=== PATIENT | female | born 1975 | race Hispanic/Latino ===

== ENCOUNTER 2019-04-24 11:02 | Observation (INO) | payer MEDICARE ==
--- NOTE | 2019-04-24 11:59 | RAD ---
XR Chest 1 View Portable History: Dyspnea Comparison: None. Findings: Heart size mildly enlarged. Mild pulmonary venous congestion. No pneumothorax. No significa nt effusion. Impression: Cardiomegaly and mild pulmonary venous congestion.
[2019-04-24 12:00] LABS: #Lymphocytes 0.7 thou/uL (1.20-3.40); #Monocytes 0.1 thou/uL (0.11-0.59); #Neutrophils 7.4 thou/uL (1.40-6.50); %Basophils 0.2 % (0.0-1.0); %Lymphocytes 8.9 % (21.0-51.0); %Monocytes 1.2 % (0.0-10.0); %Neutrophils 89.7 % (42.0-75.0); Hemoglobin 7.2 g/dL (12.0-16.0); Mean Corpuscular HGB CONC 31.3 g/dL (32.0-36.0); Mean Corpuscular Hemoglobin 26.1 pg (27.0-31.0); Mean Corpuscular Volume 83.5 fL (78.0-98.0); Mean Platelet Volume 5.8 fL (7.4-10.4); Platelet Count 406 thou/uL (130-400); RBC Distribution Width 17.1 % (11.5-14.5); Red Blood Cell (RBC) Count 2.76 mill/uL (4.20-5.40); White Blood Cell (WBC) Count 8.2 thou/uL (4.8-10.8)
[2019-04-24 12:16] LABS: ALT (SGPT) 25 U/L (8-55); AST (SGOT) 26 U/L (5-34); Albumin 4.2 g/dL (3.5-5.0); Alkaline Phosphatase 41 U/L (40-150); Anion Gap 12 mmol/L (10-20); BUN (Urea Nitrogen) 15 mg/dL (7.0-18.7); Bilirubin, Total 0.2 mg/dL (0.2-1.2); Calc. Creatinine Clearance 0 mL/min (70-130); Carbon Dioxide 21 mmol/L (22-29); Chloride 110 mmol/L (98-107); Estimated GFR-MDRD 89; Globulin 2.8 g/dL (2.4-3.5); Glucose 183 mg/dL (70-105); Potassium 3.4 mmol/L (3.5-5.1); Sodium 140 mmol/L (136-145)
[2019-04-24] MEDS ORDERED: Acetaminophen 325 MG TAB PO PRN (14:15)
[2019-04-24] MEDS ORDERED: Ondansetron ODT 4 MG TAB PO PRN (14:15)
[2019-04-24 14:17] VITALS: BMI 37.5
[2019-04-24] MEDS ORDERED: cloNIDine 0.1 MG TAB PO PRN (14:19)
[2019-04-24] MEDS ORDERED: Ibuprofen 800 MG TAB PO PRN (14:19)
[2019-04-24] MEDS ORDERED: Furosemide 20 MG/2 ML VIAL IVP SCH (14:45)
[2019-04-24] MEDS ORDERED: Sodium Chloride 0.9% 10 ML ONE (17:48)
--- NOTE | 2019-04-24 21:58 | HP ---
CHIEF COMPLAINT: Shortness of breath. HISTORY OF PRESENT ILLNESS: The patient is a 43-year-old female with a past medical history of iron deficiency, heavy periods, rheumatoid arthritis, hypertension, and fibromyalgia who presented to the ER this morning with progressive shortness of breath and fatigue that began last evening. I saw the patient for the 1st time in clinic yesterday and she was asymptomatic at that time. She states she started having difficulty moving about her house without needing to stop to catch her breath. This continued this morning and she decided to come to the ER for further evaluation. She did come to my office this morning to give blood, so that we could check her blood count and when she left the office, went to the ER. Her hemoglobin was found to be 7.2. The patient has a history of transfusions in the past and also iron infusions due to her iron deficiency. She has a history of heavy periods and her last period lasted for approximately 16 days and is just now completing. PAST MEDICAL HISTORY: 1. Rheumatoid arthritis. 2. Fibromyalgia. 3. Hypertension. 4. Iron deficiency anemia. PAST SURGICAL HISTORY: 1. C-sections x4. 2. Appendectomy. FAMILY HISTORY: Mom has lupus, heart disease, hypertension, and diabetes. Dad has arthritis. SOCIAL HISTORY: Patient denies tobacco, alcohol, and other drug use. ALLERGIES: NO KNOWN DRUG ALLERGIES. MEDICATIONS: 1. Losartan/HCTZ 100/25 mg one p.o. daily. 2. Methotrexate 2.5 mg, take 6 tabs p.o. q. week on Mondays. 3. Folic acid 1 mg p.o. daily. 4. Ibuprofen 800 mg p.o. t.i.d. p.r.n. pain. 5. Duloxetine 60 mg p.o. daily. 6. Xeljanz, dose unknown. REVIEW OF SYSTEMS: GENERAL: Negative for fever, chills, and night sweats. EYES: Negative for vision changes and eye pain. HEENT: Negative for sore throat, rhinorrhea, nasal congestion. CARDIOVASCULAR: Negative for chest pain, palpitations and orthopnea. RESPIRATORY: Negative for coughing and wheezing, but positive for shortness of breath on exertion. GI: Negative for abdominal pain, nausea, vomiting and diarrhea. : Negative for dysuria and polyuria. MUSCULOSKELETAL: Positive for chronic joint pain and stiffness. NEUROLOGIC: Negative for syncope and seizures. PSYCHIATRIC: Negative for anxiety and depression. PHYSICAL EXAMINATION: VITAL SIGNS: Temp 98.5, pulse 99, respiration rate 19, O2 saturation 100% on room air, blood pressure 187/97. GENERAL: The patient is awake, alert, oriented, in no acute distress. HEENT: Eyes, pupils are equal, round, reactive to light and accommodation. Extraocular muscles intact. Oropharynx and nasopharynx are without erythema or exudate. Mucous membranes are pale. CARDIOVASCULAR: Regular rate and rhythm without murmurs, gallops, or rubs. LUNGS: Clear to auscultation bilaterally without wheezing or rhonchi. ABDOMEN: Soft, nontender, nondistended. Bowel sounds present. EXTREMITIES: No clubbing, cyanosis, or edema. SKIN: The patient's cap refill is right at 2 seconds. The nail beds are pale. MUSCULOSKELETAL: The patient has full range of motion of all extremities and muscle strength is 5/5. NEUROLOGIC: Cranial nerves 2-12 are grossly intact, deep tendon reflexes 2/4. PSYCHIATRIC: The patient displays appropriate mood and affect. LABORATORY DATA: CBC: WBCs 8.2, hemoglobin 7.2, hematocrit 23.1, platelet count 406, MCV 83.5. CMP: Sodium 140, potassium 3.4, chloride 110, bicarb 21, BUN 15, creatinine 0.71, glucose 183, calcium 9.0, total bilirubin 0.2, AST 26, ALT 25, alkaline phosphatase 41, total protein 7.0, albumin 4.2. Troponin less than 0.01. BNP 86.2. ASSESSMENT AND PLAN: 1. Acute symptomatic iron deficiency anemia secondary to menorrhagia: The patient will be transfused 2 units of packed red blood cells and will receive Lasix after her transfusion. We will repeat H and H after her transfusion. The patient is already being set up for outpatient [employer] evaluation as her vaginal bleeding is the most likely source of the anemia. She received the information for this referral from our office this morning. 2. Hypertension: Patient's blood pressure was quite elevated on arrival. I will restart her losartan/HCTZ and provide clonidine as needed. 3. Rheumatoid arthritis: Continue ibuprofen. The patient is on Xeljanz and methotrexate. Her methotrexate dose is not due until Saturday and her Xeljanz will be brought up by her and we can give her home dose once we find out what that it is. 4. Fibromyalgia: Pain control as mentioned above. 5. Depression: Continue duloxetine. Job ID: [id number] MTDD
[2019-04-25 00:26] LABS: Hemoglobin 8.4 g/dL (12.0-16.0)
[2019-04-25 05:24] LABS: #Basophils 0.1 thou/uL (0.0-0.2); #Eosinphils 0.1 thou/uL (0.0-0.7); #Lymphocytes 1.9 thou/uL (1.20-3.40); #Monocytes 0.4 thou/uL (0.11-0.59); #Neutrophils 5.9 thou/uL (1.40-6.50); %Eosinophils 0.7 % (0.0-10.0); %Monocytes 5.2 % (0.0-10.0); Hemoglobin 8.2 g/dL (12.0-16.0); Mean Corpuscular Hemoglobin 26.7 pg (27.0-31.0); Mean Corpuscular Volume 83.7 fL (78.0-98.0); Platelet Count 330 thou/uL (130-400); RBC Distribution Width 16.1 % (11.5-14.5); Red Blood Cell (RBC) Count 3.05 mill/uL (4.20-5.40); White Blood Cell (WBC) Count 8.4 thou/uL (4.8-10.8)
[2019-04-25 05:40] LABS: Anion Gap 11 mmol/L (10-20); BUN (Urea Nitrogen) 14 mg/dL (7.0-18.7); Calc. Creatinine Clearance 188 mL/min (70-130); Carbon Dioxide 25 mmol/L (22-29); Chloride 108 mmol/L (98-107); Estimated GFR-MDRD Greater than 90; Glucose 93 mg/dL (70-105); Sodium 141 mmol/L (136-145)
[2019-04-25 05:44] LABS: Potassium 2.9 mmol/L (3.5-5.1)
[2019-04-25] MEDS ORDERED: Potassium Chloride 20 MEQ TAB PO SCH (06:15)
[2019-04-25] MEDS ORDERED: Folic Acid 1 MG TAB PO SCH (09:00)
[2019-04-25] MEDS ORDERED: DULoxetine 30 MG CAP PO SCH (09:00)
[2019-04-25] MEDS ORDERED: Losartan 25 MG TAB PO SCH (09:00)
[2019-04-25] MEDS ORDERED: Hydrochlorothiazide 25 MG TAB PO SCH (09:00)
[2019-04-25 09:22] VITALS: TEMP 97.9
[2019-04-25 09:31] VITALS: BP 158/80
--- NOTE | 2019-04-26 05:07 | DIS ---
DATE OF ADMISSION: 04/24/2019 DATE OF DISCHARGE: 04/25/2019 DISCHARGE DIAGNOSES: 1. Acute on chronic symptomatic iron deficiency anemia. 2. Menorrhagia. 3. Hypertension. 4. Rheumatoid arthritis. 5. Fibromyalgia. DISCHARGE MEDICATIONS: 1. Vitamin D3 5000 units p.o. daily. 2. Cymbalta 60 mg p.o. daily. 3. Folic acid 20 mg p.o. daily. 4. Ibuprofen 800 mg p.o. t.i.d. 5. Losartan/HCTZ 100/12.5 mg p.o. daily. 6. Methotrexate 2.5 mg, take six tabs p.o. every week. 7. Prednisone 10 mg p.o. b.i.d. p.r.n. severe joint swelling. 8. Xeljanz XR 11 mg p.o. daily. 9. Zinc 50 mg p.o. daily. 10. Potassium chloride 10 mEq one p.o. q.a.m. x5 days. HOSPITAL COURSE: The patient is a 43-year-old female with a past medical history of iron deficiency anemia, rheumatoid arthritis, hypertension, and fibromyalgia, who presented to the ER with worsening shortness of breath and dyspnea on exertion. The patient's hemoglobin in my office that was drawn yesterday came back 6.8 and in the ER at 7.2. The patient was placed in observation overnight, received 2 units of packed red blood cells. This morning, the patient's hemoglobin is up to 8.2. The patient is no longer symptomatic, feels better, and wants to go home. This morning's labs also indicated the patient was hypokalemic and she also received 40 mEq of potassium. The patient will discharge home on current medications. She has already received the information from my office regarding [employer] referral to evaluate for possible hysterectomy due to her heavy periods, which is likely source of her anemia. DISPOSITION: 1. Discharged home in stable condition. 2. Diet, regular. 3. Activity, ad angle. 4. Followup with myself in the office in 3 days. Job ID: [id number]
[2019-04-26] MEDS ORDERED: Potassium Chloride 10 MEQ TAB PO SCH (08:00)
== END 2019-04-25 11:15 | disposition home or self-care (01) ==
LOC: NAV ERS 11:02 → NAV ACUTE 13:55
PROVIDERS: ADMIT Family Medicine; ATTEND Family Medicine
DX: N92.0 Excessive and frequent menstruation with regular cycle (principal); D62 Acute posthemorrhagic anemia; I10 Essential (primary) hypertension; M06.9 Rheumatoid arthritis, unspecified; M79.7 Fibromyalgia; F32.9 Major depressive disorder, single episode, unspecified; Z79.899 Other long term (current) drug therapy
CPT/HCPCS: 36415; 36430; 71045; 80048; 80053; 83540; 83880; 84484; 85025; 86850; 86900; 86901; 93005; G0378; J1940; P9016

== ENCOUNTER 2021-04-16 17:16 | Emergency (ER) | payer MEDICARE, SELFPAY ==
[2021-04-17 23:01] LABS: SARS-CoV-2 PCR by NAA Not Detected (NotDetected)
== END 2021-04-16 17:52 | disposition home or self-care (01) ==
LOC: NAV ERS 17:16
DX: M79.10 Myalgia, unspecified site (principal); Z20.822 Contact with and (suspected) exposure to COVID-19; I10 Essential (primary) hypertension; D64.9 Anemia, unspecified; M06.9 Rheumatoid arthritis, unspecified; Z79.899 Other long term (current) drug therapy
CPT/HCPCS: 99283; U0003; U0005

== ENCOUNTER 2021-05-25 12:10 | Outpatient (CLI) | payer OTHER, MEDICARE | END 2021-05-25 12:11 | disposition home or self-care (01) | LOC: NAV RAD 12:10 | PROVIDERS: ATTEND Family Medicine | DX: L03.031 Cellulitis of right toe (principal) ==

== ENCOUNTER 2023-03-16 11:28 | Emergency (ER) | payer MEDICARE ==
[2023-03-16] MEDS ORDERED: Acetaminophen 500 MG TAB ONE (11:59)
[2023-03-16] MEDS ORDERED: Sodium Chloride 0.9% 1,000 ML ONE (11:59)
[2023-03-16 12:08] LABS: #Lymphocytes 1.1 thou/uL (1.20-3.40); #Monocytes 0.6 thou/uL (0.11-0.59); #Neutrophils 8.1 thou/uL (1.40-6.50); %Basophils 0.3 % (0.0-1.0); %Lymphocytes 10.9 % (21.0-51.0); %Monocytes 6.3 % (0.0-10.0); %Neutrophils 82.5 % (42.0-75.0); Hemoglobin 12.1 g/dL (12.0-16.0); Mean Corpuscular Hemoglobin 27.1 pg (27.0-31.0); Mean Corpuscular Volume 84.6 fl (78.0-98.0); Mean Platelet Volume 6.7 fL (7.4-10.4); Platelet Count 322 10x3/uL (130-400); RBC Distribution Width 12.6 % (11.5-14.5); Red Blood Cell (RBC) Count 4.45 mill/uL (4.20-5.40); White Blood Cell (WBC) Count 9.8 10x3/uL (4.8-10.8)
[2023-03-16 12:25] LABS: Albumin 4.3 g/dL (3.5-5.0); Anion Gap 13 mmol/L (10-20); BUN (Urea Nitrogen) 16 mg/dL (7.0-18.7); Bilirubin, Total 0.4 mg/dL (0.2-1.2); Calc. Creatinine Clearance 0 mL/min (70-130); Calcium 8.7 mg/dL (7.8-10.44); Carbon Dioxide 24 mmol/L (22-29); Chloride 106 mmol/L (98-107); Estimated GFR 106; Glucose 112 mg/dL (70-105); Potassium 2.8 mmol/L (3.5-5.1); Protein, Total 7.6 g/dL (6.0-8.3); Sodium 140 mmol/L (136-145)
[2023-03-16 12:26] LABS: ALT (SGPT) 19 U/L (8-55); AST (SGOT) 19 U/L (5-34); Alkaline Phosphatase 53 U/L (40-110); Globulin 3.3 g/dL (2.4-3.5); Magnesium 1.9 mg/dL (1.6-2.6)
[2023-03-16] MEDS ORDERED: Potassium Chloride 20 MEQ TAB ONE (12:38)
== END 2023-03-16 13:07 | disposition home or self-care (01) ==
LOC: NAV ERS 11:28
DX: I10 Essential (primary) hypertension (principal); E87.6 Hypokalemia; E11.9 Type 2 diabetes mellitus without complications; Z79.899 Other long term (current) drug therapy; Z79.84 Long term (current) use of oral hypoglycemic drugs
CPT/HCPCS: 36415; 80053; 83735; 84484; 85025; 93005; 94760; 96360; J7050

== ENCOUNTER 2023-09-02 20:43 | Emergency (ER) | payer MEDICARE ==
[2023-09-02] MEDS ORDERED: Clindamycin 150 MG CAP ONE (21:36)
== END 2023-09-02 21:47 | disposition home or self-care (01) ==
LOC: NAV ERS 20:43
DX: L02.31 Cutaneous abscess of buttock (principal); E11.9 Type 2 diabetes mellitus without complications; I10 Essential (primary) hypertension; Z79.899 Other long term (current) drug therapy; Z79.84 Long term (current) use of oral hypoglycemic drugs
CPT/HCPCS: 10060; 87070; 87205

== ENCOUNTER 2024-08-23 16:56 | Emergency (ER) | payer MEDICARE | END 2024-08-23 17:55 | disposition home or self-care (01) | LOC: NAV ERS 16:56 | DX: L03.115 Cellulitis of right lower limb (principal); I10 Essential (primary) hypertension; E11.9 Type 2 diabetes mellitus without complications; M79.7 Fibromyalgia; M06.9 Rheumatoid arthritis, unspecified; Z79.84 Long term (current) use of oral hypoglycemic drugs; Z79.899 Other long term (current) drug therapy | CPT/HCPCS: 99283 ==

== ENCOUNTER 2024-08-27 09:30 | Inpatient (IN) | payer MEDICARE ==
[~2024-08-27 09:30] MED LIST: Iopamidol 370 76% 100 ML VIAL ONE
[2024-08-27 10:17] LABS: #Basophils 0.1 thou/uL (0.0-0.2); #Eosinophils 0.3 thou/uL (0.0-0.7); #Lymphocytes 1.5 thou/uL (1.20-3.40); #Monocytes 0.3 thou/uL (0.11-0.59); #Neutrophils 3.6 thou/uL (1.40-6.50); %Basophils 1.1 % (0.0-1.0); %Eosinophils 4.9 % (0.0-10.0); %Lymphocytes 26.1 % (21.0-51.0); %Monocytes 4.7 % (0.0-10.0); %Neutrophils 63.2 % (42.0-75.0); Base Excess-Venous 4.1 mmol/L (-2.0 to 3.0); CO2 Tension (PvCO2) 43.8 mmHg (42.0-51.0); Calcium, Ionized 1.21 mmol/L (1.15-1.33); Chloride 101 mmol/L (98-107); Hematocrit 37.4 % (36.0-47.0); Hemoglobin 11.7 g/dL (12.0-16.0); Hemoglobin - Calc 13.3 g/dL (12.0-16.0); Mean Corpuscular HGB CONC 31.3 g/dL (32.0-36.0); Mean Corpuscular Hemoglobin 25.3 pg (27.0-31.0); Mean Platelet Volume 6.8 fL (7.4-10.4); Platelet Count 245 10x3/uL (130-400); Potassium 3.1 mmol/L (3.5-5.1); RBC Distribution Width 12.8 % (11.5-14.5); Red Blood Cell (RBC) Count 4.62 mill/uL (4.20-5.40); Sodium 142 mmol/L (138-145); T. Carbon Dioxide 30.3 mmol/L (22.0-28.0); White Blood Cell (WBC) Count 5.7 10x3/uL (4.8-10.8); vO2 Saturation-calc 93.4 % (60.0-85.0)
[2024-08-27 10:25] LABS: ALT (SGPT) 14 U/L (8-55); AST (SGOT) 14 U/L (5-34); Albumin 3.6 g/dL (3.5-5.0); Alkaline Phosphatase 54 U/L (40-110); Anion Gap 17 mmol/L (10-20); BUN (Urea Nitrogen) 19 mg/dL (9.8-20.1); Bilirubin, Total 0.5 mg/dL (0.2-1.2); Calc. Creatinine Clearance 0 mL/min (70-130); Carbon Dioxide 27 mmol/L (22-29); Chloride 103 mmol/L (98-107); Estimated GFR 98; Globulin 4.3 g/dL (2.4-3.5); Glucose 153 mg/dL (70-105); Potassium 3.3 mmol/L (3.5-5.1); Protein, Total 7.9 g/dL (6.0-8.3); Sodium 144 mmol/L (136-145)
[2024-08-27] MEDS ORDERED: VANCOMYCIN IVPB PRN (12:50)
[2024-08-27] MEDS ORDERED: diphenhydrAMINE 50 MG/ML VIAL IVP PRN (12:51)
[2024-08-27] MEDS: Acetaminophen 325 MG TAB ONE (12:57)
[2024-08-27] MEDS ORDERED: Glucagon 1 MG/ML KIT IM PRN (12:57)
[2024-08-27] MEDS ORDERED: Dextrose 50% Abboject 50 ML SYRINGE SLOW IVP PRN (12:57)
[2024-08-27] MEDS ORDERED: Insulin Regular, Human 100 UNIT/ML 10 ML VIAL SC PRN (12:57)
[2024-08-27] MEDS: Cefepime 2 GM VIAL ONE (12:58)
[2024-08-27] MEDS: Sodium Chloride 0.9% 500 ML ONE (12:58)
[2024-08-27] MEDS: Sodium Chloride 0.9% 100 ML ONE (12:58)
[2024-08-27] MEDS: diphenhydrAMINE 50 MG/ML VIAL ONE (12:59)
[2024-08-27] MEDS: Potassium Chloride 20 MEQ TAB ONE (12:59)
[2024-08-27] MEDS: Vancomycin 1 GM VIAL ONE (12:59)
[2024-08-27 13:10] VITALS: BMI 33.5
[2024-08-27] MEDS ORDERED: Insulin Lispro 100 UNIT/ML 10 ML VIAL SC PRN (13:29)
[2024-08-27] MEDS: Enoxaparin 40 MG (0.4 mL) SYRINGE SC SCH (13:38)
[2024-08-27] MEDS: Cefepime 2 GM in Sodium Chloride 0.9% 100 ML IVPB SCH (17:49)
[2024-08-27] MEDS: Acetaminophen 325 MG TAB PO PRN (17:51)
[2024-08-27] MEDS: Gabapentin 300 MG CAP PO SCH (20:37)
[2024-08-27] MEDS: metFORMIN 500 MG TAB PO SCH (20:37)
[2024-08-27] MEDS: Atorvastatin Calcium 20 MG TAB PO SCH (20:37)
[2024-08-27] MEDS: Vancomycin HCl 500 MG in Sodium Chloride 0.9% 100 ML IVPB SCH (23:18)
[2024-08-27] MEDS: Vancomycin HCl 750 MG in Sodium Chloride 0.9% 250 ML 250 ML IVPB SCH (23:18)
[2024-08-27] MEDS: Vancomycin HCl 500 MG VIAL ONE (23:19)
[2024-08-28 06:04] LABS: #Eosinophils 0.3 thou/uL (0.0-0.7); #Monocytes 0.3 thou/uL (0.11-0.59); #Neutrophils 1.6 thou/uL (1.40-6.50); %Basophils 1.1 % (0.0-1.0); %Eosinophils 6.4 % (0.0-10.0); %Monocytes 7.9 % (0.0-10.0); %Neutrophils 37.5 % (42.0-75.0); Hematocrit 34.6 % (36.0-47.0); Hemoglobin 10.6 g/dL (12.0-16.0); Mean Corpuscular HGB CONC 30.5 g/dL (32.0-36.0); Mean Corpuscular Hemoglobin 24.9 pg (27.0-31.0); Mean Corpuscular Volume 81.4 fl (78.0-98.0); Mean Platelet Volume 6.7 fL (7.4-10.4); Platelet Count 376 10x3/uL (130-400); Red Blood Cell (RBC) Count 4.25 mill/uL (4.20-5.40); White Blood Cell (WBC) Count 4.2 10x3/uL (4.8-10.8)
[2024-08-28 06:05] LABS: Vancomycin, Random 13.9 ug/mL (See Comment)
[2024-08-28 06:07] LABS: ALT (SGPT) 13 U/L (8-55); AST (SGOT) 11 U/L (5-34); Alkaline Phosphatase 44 U/L (40-110); Anion Gap 13 mmol/L (10-20); BUN (Urea Nitrogen) 18 mg/dL (9.8-20.1); Bilirubin, Total 0.3 mg/dL (0.2-1.2); Calc. Creatinine Clearance 162 mL/min (70-130); Calcium 8.9 mg/dL (7.8-10.44); Carbon Dioxide 26 mmol/L (22-29); Chloride 108 mmol/L (98-107); Estimated GFR 107; Globulin 3.6 g/dL (2.4-3.5); Glucose 100 mg/dL (70-105); Potassium 3.7 mmol/L (3.5-5.1); Protein, Total 6.6 g/dL (6.0-8.3); Sodium 143 mmol/L (136-145)
[2024-08-28] MEDS: FLU (Fluarix Triv) TS24-25(6MOS UP)/PF 45 MCG/0.5 ML Syringe IM ONE (08:22)
[2024-08-28] MEDS: Meloxicam 7.5 MG TAB PO SCH (08:39)
[2024-08-28] MEDS: Amlodipine 10 MG TAB PO SCH (08:40)
[2024-08-28] MEDS: Famotidine 20 MG TAB PO SCH (08:41)
[2024-08-28] MEDS: Folic Acid 1 MG TAB PO SCH (08:41)
[2024-08-28] MEDS: Hydrochlorothiazide 25 MG TAB PO SCH (08:41)
[2024-08-28] MEDS: Losartan 50 MG TAB PO SCH (08:43)
[2024-08-28] MEDS: Estradiol 1 MG TAB PO SCH (08:43)
[2024-08-28] MEDS: Enoxaparin 40 MG (0.4 mL) SYRINGE SC SCH (08:44)
[2024-08-28] MEDS: DULoxetine 30 MG CAP PO SCH (08:52)
[2024-08-29 06:00] LABS: #Basophils 0.1 thou/uL (0.0-0.2); #Eosinophils 0.3 thou/uL (0.0-0.7); #Lymphocytes 2.2 thou/uL (1.20-3.40); #Monocytes 0.4 thou/uL (0.11-0.59); #Neutrophils 2.5 thou/uL (1.40-6.50); %Basophils 1.1 % (0.0-1.0); %Eosinophils 5.3 % (0.0-10.0); %Lymphocytes 40.5 % (21.0-51.0); %Monocytes 6.7 % (0.0-10.0); %Neutrophils 46.4 % (42.0-75.0); Hemoglobin 10.3 g/dL (12.0-16.0); Mean Corpuscular HGB CONC 30.2 g/dL (32.0-36.0); Mean Corpuscular Hemoglobin 24.8 pg (27.0-31.0); Mean Corpuscular Volume 81.9 fl (78.0-98.0); Mean Platelet Volume 6.8 fL (7.4-10.4); Platelet Count 389 10x3/uL (130-400); RBC Distribution Width 12.9 % (11.5-14.5); Red Blood Cell (RBC) Count 4.15 mill/uL (4.20-5.40); White Blood Cell (WBC) Count 5.4 10x3/uL (4.8-10.8)
[2024-08-29 06:11] LABS: Anion Gap 13 mmol/L (10-20); BUN (Urea Nitrogen) 16 mg/dL (9.8-20.1); Calc. Creatinine Clearance 162 mL/min (70-130); Calcium 9.1 mg/dL (7.8-10.44); Carbon Dioxide 26 mmol/L (22-29); Chloride 106 mmol/L (98-107); Estimated GFR 107; Glucose 109 mg/dL (70-105); Potassium 3.7 mmol/L (3.5-5.1); Sodium 141 mmol/L (136-145)
[2024-08-29] MEDS: Vancomycin HCl 500 MG VIAL ONE (11:26)
[2024-08-30 06:25] LABS: #Basophils 0.1 thou/uL (0.0-0.2); #Eosinophils 0.3 thou/uL (0.0-0.7); #Lymphocytes 1.7 thou/uL (1.20-3.40); #Monocytes 0.4 thou/uL (0.11-0.59); #Neutrophils 2.9 thou/uL (1.40-6.50); %Basophils 0.9 % (0.0-1.0); %Eosinophils 4.7 % (0.0-10.0); %Lymphocytes 32.1 % (21.0-51.0); %Neutrophils 55.3 % (42.0-75.0); Hematocrit 33.8 % (36.0-47.0); Hemoglobin 10.7 g/dL (12.0-16.0); Mean Corpuscular HGB CONC 31.6 g/dL (32.0-36.0); Mean Corpuscular Hemoglobin 25.3 pg (27.0-31.0); Mean Corpuscular Volume 80.2 fl (78.0-98.0); Mean Platelet Volume 6.7 fL (7.4-10.4); Platelet Count 431 10x3/uL (130-400); RBC Distribution Width 12.5 % (11.5-14.5); Red Blood Cell (RBC) Count 4.22 mill/uL (4.20-5.40); White Blood Cell (WBC) Count 5.3 10x3/uL (4.8-10.8)
[2024-08-30 06:41] LABS: ALT (SGPT) 13 U/L (8-55); AST (SGOT) 13 U/L (5-34); Albumin 3.3 g/dL (3.5-5.0); Alkaline Phosphatase 42 U/L (40-110); Anion Gap 13 mmol/L (10-20); BUN (Urea Nitrogen) 12 mg/dL (9.8-20.1); Bilirubin, Total 0.2 mg/dL (0.2-1.2); Calc. Creatinine Clearance 168 mL/min (70-130); Calcium 9.4 mg/dL (7.8-10.44); Carbon Dioxide 25 mmol/L (22-29); Chloride 106 mmol/L (98-107); Estimated GFR 108; Globulin 3.6 g/dL (2.4-3.5); Glucose 91 mg/dL (70-105); Potassium 3.3 mmol/L (3.5-5.1); Protein, Total 6.9 g/dL (6.0-8.3); Sodium 141 mmol/L (136-145)
[2024-08-30] MEDS: Sulfameth/Trimethoprim DS 800-160mg TAB PO SCH (09:48)
[2024-08-30] MEDS: Potassium Chloride 20 MEQ TAB PO SCH (09:48)
[2024-08-31 06:01] LABS: #Basophils 0.1 thou/uL (0.0-0.2); #Eosinophils 0.2 thou/uL (0.0-0.7); #Lymphocytes 1.7 thou/uL (1.20-3.40); #Monocytes 0.4 thou/uL (0.11-0.59); #Neutrophils 3.6 thou/uL (1.40-6.50); %Lymphocytes 28.4 % (21.0-51.0); %Monocytes 6.6 % (0.0-10.0); %Neutrophils 60.1 % (42.0-75.0); Hematocrit 35.9 % (36.0-47.0); Hemoglobin 11.1 g/dL (12.0-16.0); Mean Corpuscular Volume 80.7 fl (78.0-98.0); Mean Platelet Volume 6.6 fL (7.4-10.4); Platelet Count 407 10x3/uL (130-400); RBC Distribution Width 12.9 % (11.5-14.5); Red Blood Cell (RBC) Count 4.44 mill/uL (4.20-5.40); White Blood Cell (WBC) Count 6.1 10x3/uL (4.8-10.8)
[2024-08-31 06:14] LABS: Anion Gap 14 mmol/L (10-20); BUN (Urea Nitrogen) 19 mg/dL (9.8-20.1); Calc. Creatinine Clearance 146 mL/min (70-130); Calcium 9.4 mg/dL (7.8-10.44); Carbon Dioxide 25 mmol/L (22-29); Chloride 104 mmol/L (98-107); Estimated GFR 105; Glucose 83 mg/dL (70-105); Potassium 3.6 mmol/L (3.5-5.1); Sodium 139 mmol/L (136-145)
[2024-08-31 07:58] VITALS: BP 154/85; TEMP 98
== END 2024-08-31 10:03 | disposition home or self-care (01) | DRG 603 ==
LOC: NAV ERS 09:30 → OBSVTOIN 12:43 → NAV ACUTE 12:43
PROVIDERS: ADMIT Student in an Organized Health Care Education/Training Program; ATTEND Student in an Organized Health Care Education/Training Program
DX: L03.115 Cellulitis of right lower limb (principal); E61.1 Iron deficiency; M06.9 Rheumatoid arthritis, unspecified; I10 Essential (primary) hypertension; E78.5 Hyperlipidemia, unspecified; B95.62 Methicillin resistant Staphylococcus aureus infection as the cause of diseases classified elsewhere; E87.6 Hypokalemia; M25.461 Effusion, right knee; E11.9 Type 2 diabetes mellitus without complications; Z53.9 Procedure and treatment not carried out, unspecified reason; Z98.891 History of uterine scar from previous surgery; Z90.710 Acquired absence of both cervix and uterus; Z90.49 Acquired absence of other specified parts of digestive tract
CPT/HCPCS: 36415; 36416; 80048; 80053; 80202; 82330; 82435; 82803; 83605; 84132; 84295; 85014; 85025; 86140; 87040; 96365; 96375; G0378; J0692; J1200; J1650; J3370; J7030; J7050; Q9967

== ENCOUNTER 2025-07-08 15:40 | Emergency (ER) | payer BC, MEDICARE ==
[2025-07-08] MEDS ORDERED: Acetaminophen 500 MG TAB ONE (16:12)
[2025-07-08 16:14] LABS: Glucose, Urine (Dipstick) Negative (Negative); Leukocyte Negative (Negative); Protein, Urine (Dipstick) 100 mg/dL (Neg-Trace); Specific Gravity, Urine Greater/Equal 1.030 (1.005-1.030)
[2025-07-08 16:16] LABS: CAUTI Indications for Culture Acute Hematuria; RBC/HPF Greater than 50 HPF (0-3); WBC/HPF 0-3 HPF (0-3)
[2025-07-08 16:17] LABS: Urine Culture Reflex No No
[2025-07-08 16:46] LABS: #Basophils 0.1 thou/uL (0.0-0.2)
[2025-07-08 16:47] LABS: #Eosinophils 0.1 thou/uL (0.0-0.7); #Lymphocytes 1.5 thou/uL (1.20-3.40); #Monocytes 0.2 thou/uL (0.11-0.59); #Neutrophils 2.9 thou/uL (1.40-6.50); %Basophils 1.3 % (0.0-1.0); %Eosinophils 1.9 % (0.0-10.0); %Lymphocytes 31.8 % (21.0-51.0); %Monocytes 3.5 % (0.0-10.0); %Neutrophils 61.5 % (42.0-75.0); Hematocrit 34.7 % (36.0-47.0); Hemoglobin 11.8 g/dL (12.0-16.0); Mean Corpuscular Hemoglobin 28.7 pg (27.0-31.0); Mean Corpuscular Volume 84.6 fl (78.0-98.0); Platelet Count 299 10x3/uL (130-400); Red Blood Cell (RBC) Count 4.10 mill/uL (4.20-5.40); White Blood Cell (WBC) Count 4.7 10x3/uL (4.8-10.8)
[2025-07-08 16:49] LABS: ALT (SGPT) 25 U/L (Less than 34); AST (SGOT) 41 U/L (11-34); Albumin 3.8 g/dL (3.1-4.5); Alkaline Phosphatase 45 U/L (40-110); Anion Gap 16 mmol/L (10-20); BUN (Urea Nitrogen) 22 mg/dL (9.8-20.1); Bilirubin, Total 0.2 mg/dL (0.3-1.2); Calc. Creatinine Clearance 0 mL/min (70-130); Calcium 9.4 mg/dL (7.8-10.44); Carbon Dioxide 22 mmol/L (22-29); Chloride 104 mmol/L (98-107); Globulin 3.8 g/dL (2.4-3.5); Glucose 104 mg/dL (70-105); Potassium 2.9 mmol/L (3.5-5.1); Sodium 139 mmol/L (136-145)
== END 2025-07-08 18:14 | disposition home or self-care (01) ==
LOC: NAV ERS 15:40
DX: M54.50 Low back pain, unspecified (principal); M51.87 Other intervertebral disc disorders, lumbosacral region; R31.9 Hematuria, unspecified; E11.9 Type 2 diabetes mellitus without complications; E78.5 Hyperlipidemia, unspecified; I10 Essential (primary) hypertension; Z79.84 Long term (current) use of oral hypoglycemic drugs; Z79.899 Other long term (current) drug therapy
CPT/HCPCS: 74176; 80053; 81001; 85025; J7030